=== PATIENT | female | born 1970 | race Caucasian/White ===

== ENCOUNTER → 2016-11-16 | Outpatient (CLI) | payer OTHER ==
--- NOTE | 2016-11-16 10:35 | REP ---
Clinical: Contusion. Technique: AP and lateral views of the left forearm. Findings: Fracture involving the distal radial metaphysis extending to the articular surface is suspected and requires correlation. Impression: Suspected nondisplaced fracture involving the distal radius. Signed by Rock Bean MD 11/16/2016 10:26 A
== END ==
LOC: M ADAMS 10:03
PROVIDERS: ATTEND Physician Assistant Medical
DX: S50.12XA Contusion of left forearm, initial encounter (principal); X58.XXXA Exposure to other specified factors, initial encounter; Y92.89 Other specified places as the place of occurrence of the external cause

== ENCOUNTER → 2016-11-16 | Outpatient (CLI) | payer OTHER | LOC: M ADAMS 10:35 | PROVIDERS: ATTEND Physician Assistant Medical | DX: S60.212A Contusion of left wrist, initial encounter (principal); X58.XXXA Exposure to other specified factors, initial encounter; Y92.89 Other specified places as the place of occurrence of the external cause ==

== ENCOUNTER → 2016-11-16 | Outpatient (CLI) | payer OTHER ==
--- NOTE | 2016-11-16 11:26 | REP ---
Clinical: Contusion. Trauma. Technique: AP, lateral, bilateral oblique views of the left wrist. Findings: A subtle nondisplaced fracture involving the distal radial metaphysis cannot be excluded. Remainder examination appears normal. Impression: Cannot exclude subtle nondisplaced fracture of the distal radius. Signed by Rock Bean MD 11/16/2016 11:17 A
== END ==
LOC: M ADAMS 08:00
PROVIDERS: ATTEND Physician Assistant Medical
DX: S60.212A Contusion of left wrist, initial encounter (principal)

== ENCOUNTER → 2017-03-15 | Outpatient (REF) | payer OTHER | LOC: M SFHCWAGY 12:17 | PROVIDERS: ATTEND Nurse Practitioner Family | DX: Z12.4 Encounter for screening for malignant neoplasm of cervix (principal) ==

== ENCOUNTER → 2017-10-17 | Outpatient (REF) | payer OTHER | LOC: M LAB REF 18:48 | DX: J02.9 Acute pharyngitis, unspecified (principal) ==

== ENCOUNTER → 2018-02-04 | Outpatient (CLI) | payer OTHER | LOC: M WHC 13:50 | DX: Z12.31 Encounter for screening mammogram for malignant neoplasm of breast (principal) | CPT/HCPCS: 77067 ==

== ENCOUNTER → 2018-08-26 | Outpatient (REF) | payer OTHER | LOC: M LAB REF 19:51 | DX: N39.0 Urinary tract infection, site not specified (principal) ==

== ENCOUNTER → 2019-06-03 | Outpatient (REF) | payer OTHER | LOC: M SFHCWAGY 12:04 | PROVIDERS: ATTEND Nurse Practitioner Family | DX: Z12.4 Encounter for screening for malignant neoplasm of cervix (principal) ==

== ENCOUNTER → 2019-06-03 | Outpatient (CLI) | payer OTHER ==
--- NOTE | 2019-06-03 13:22 | REPMRS ---
Patient History The patient states she had a clinical breast exam in 05/2019. No known family history of cancer. No Hormone Replacement Therapy 3D TOMOSYNTHESIS WAS PERFORMED. [facility] for breast cancer [facility] 11.[facility]%. Digital Woman Screen Mammo: June 03, 2019 - Exam #: [id number] Bilateral CC and MLO view(s) were taken. Technologist: Jada Rodriguez, Technologist Prior study comparison: February 04, 2018, digital woman screen mammo performed at [facility]. December 13, 2015, digital woman screen mammo performed at [facility]. FINDINGS: The breast tissue is heterogeneously dense. This may lower the sensitivity of mammography. There has been no change in the appearance of the mammogram from the prior studies. There is a moderate amount of residual fibroglandular tissue which is fairly symmetric. There is no interval development of dominant mass, areas of architectural distortion, or clustered microcalcification typical of malignancy. Assessment: BI-RADS/ACR category 1 mammogram. Negative Mammogram. Recommendation Routine screening mammogram in 1 year (for women over age 40). This mammogram was interpreted with the aid of an FDA-approved computer-aided dectection system. Electronically Signed By: Olman Chavez MD 06/03/19 [id number]
== END ==
LOC: M WHC 11:32
PROVIDERS: ATTEND Nurse Practitioner Family
DX: Z12.31 Encounter for screening mammogram for malignant neoplasm of breast (principal)

== ENCOUNTER → 2019-06-03 | Outpatient (REF) | payer OTHER ==
[~2019-06-03] MED LIST: PERCOCET PO
== END ==
LOC: M SFHCWAGY 14:09
PROVIDERS: ATTEND Nurse Practitioner Family
DX: Z12.4 Encounter for screening for malignant neoplasm of cervix (principal)

== ENCOUNTER → 2019-08-21 | Outpatient (CLI) | payer OTHER ==
[2019-08-21 11:32] LABS: HEMATOCRIT 40.5 % (36.0-47.0); MEAN CORPUSCULAR HEMOGLOBIN 30.9 pg (27.0-33.0); MEAN CORPUSCULAR HGB CONC 32.1 g/dl (32.0-36.5); MEAN CORPUSCULAR VOLUME 96.2 fl (80.0-96.0); PLATELET COUNT, AUTOMATED 232 10^3/uL (150-450); RED BLOOD COUNT 4.21 10^6/uL (4.00-5.40); WHITE BLOOD COUNT 6.6 10^3/uL (4.0-10.0)
[2019-08-21 11:59] LABS: BLOOD UREA NITROGEN 12 MG/DL (7-18); CALCIUM LEVEL 8.6 MG/DL (8.5-10.1); CARBON DIOXIDE LEVEL 29 MEQ/L (21-32); CHLORIDE LEVEL 105 MEQ/L (98-107); CREATININE FOR GFR 0.86 MG/DL (0.55-1.30); GLOMERULAR FILTRATION RATE > 60.0 (>58); GLUCOSE, FASTING 93 MG/DL (70-100); POTASSIUM SERUM 4.6 MEQ/L (3.5-5.1); SODIUM LEVEL 137 MEQ/L (136-145)
== END ==
LOC: M LAB 10:56
PROVIDERS: ATTEND Plastic Surgery Surgery of the Hand
DX: N62 Hypertrophy of breast (principal)

== ENCOUNTER 2019-09-01 06:10 | Day surgery (SDC) | payer OTHER ==
[2019-09-01] VITALS (7 sets, daily range): BP systolic 103–116; BP diastolic 55–69
[~2019-09-01] VITALS: Ht 160 cm; Wt 59.9 kg
[~2019-09-01 06:10] MED LIST changes: +LR 1,000 ML IV ONE; -PERCOCET PO; +ceFAZolin SOD 1 GM in D5W MINI-BAG PLUS 50 ML IV ONE
[2019-09-01] MEDS ORDERED: BACITRACIN PWD 50,000 UNITS VIAL As Ordered ONE (06:42)
[2019-09-01] MEDS ORDERED: BUPIVACAINE LIPOSOME/PF 1.3% 20ML VIAL (13.3MG/ML)(EXPAREL)(C9290 PER1MG) As Ordered ONE (06:42)
[2019-09-01] MEDS ORDERED: LIDOCAINE 1% MDV 20ML VIAL As Ordered ONE (06:43)
[2019-09-01] MEDS ORDERED: EPINEPHrine INJ 1 MG/ML 1ML AMP As Ordered ONE (06:43)
[2019-09-01] MEDS ORDERED: SCOPOLAMINE 1MG TRANSDERMAL PATCH As Ordered ONE (07:36)
[2019-09-01] MEDS ORDERED: SCOPOLAMINE 1MG TRANSDERMAL PATCH TOP ONE (07:45)
[2019-09-01] MEDS ORDERED: dexameTHASONE 4 MG/ML 1ML VIAL (J1100) As Ordered ONE (08:06)
[2019-09-01] MEDS ORDERED: LIDOCAINE 2% INJ 100 MG/5 ML SDV (FOR ANES.) As Ordered ONE (08:06)
[2019-09-01] MEDS ORDERED: ePHEDrine SULFATE 25 MG/5 ML(5MG/ML) SYRINGE As Ordered ONE (08:06)
[2019-09-01] MEDS ORDERED: MIDAZOLAM INJ 2 MG/2 ML VIAL (J2250) As Ordered ONE (08:06)
[2019-09-01] MEDS ORDERED: ONDANSETRON 4MG/2ML VIAL (J2405) As Ordered ONE (08:06)
[2019-09-01] MEDS ORDERED: SUGAMMADEX SODIUM 500 MG/5 ML VIAL (BRIDION) As Ordered ONE (08:06)
[2019-09-01] MEDS ORDERED: METOCLOPRAMIDE INJ 10MG/2ML VIAL (J2765) As Ordered ONE (08:06)
[2019-09-01] MEDS ORDERED: PHENYLephrine HCL 500 MCG/5 ML (100MCG/ML) SYRINGE (J2370) As Ordered ONE (08:06)
[2019-09-01] MEDS ORDERED: PROPOFOL 200 MG/20 ML VIAL As Ordered ONE ×2 (08:06→10:50)
[2019-09-01] MEDS ORDERED: fentaNYL 250 MCG/5 ML INJECTION (J3010) As Ordered ONE (08:06)
[2019-09-01] MEDS ORDERED: ROCURONIUM BROMIDE 50 MG/5 ML VIAL As Ordered ONE ×2 (08:06→08:32)
[2019-09-01] MEDS ORDERED: ACETAMINOPHEN 1000MG 100ML IV BTL (OFIRMEV) (J0131 PER 10MG) As Ordered ONE (08:11)
[2019-09-01] MEDS ORDERED: KETOROLAC 60 MG/2 ML VIAL (J1885) As Ordered ONE (08:59)
[2019-09-01] MEDS ORDERED: HYDROmorphone HCL 2 MG/ML 1ML VIAL (J1170) As Ordered ONE (09:16)
--- NOTE | 2019-09-01 11:02 | POST-OPPD ---
Postoperative Procedure Note Date Of Procedure: Sep 01, 2019 PREOPERATIVE DIAGNOSIS: Symptomatic macromastia POSTOPERATIVE DIAGNOSIS: same FINDINGS: Large pendulous breasts PROCEDURE: Bilateral breast reduction SURGEON: Dr Magallanes BOAT DETAILER: Dr Gann ANESTHESIA: General SPECIMENS: Right breast 292 g, Left Breast 241g ESTIMATED BLOOD LOSS: 50cc REPLACED: none DRAINS: 10 mm JANES drains x 2 COMPLICATIONS: none POSTOPERATIVE CONDITION: stable JEFRY MAGALLANES DO Sep 01, 2019 11:02
[2019-09-01] MEDS ORDERED: fentaNYL 100 MCG/2 ML INJECTION (J3010) As Ordered ONE (11:15)
[2019-09-01] MEDS ORDERED: fentaNYL 100 MCG/2 ML INJECTION (J3010) IV PRN (11:30)
[2019-09-01] MEDS ORDERED: LR 1,000 ML IV SCH (11:30)
[2019-09-01] MEDS ORDERED: ONDANSETRON 4MG/2ML VIAL (J2405) IV PRN ×2 (11:30→13:00)
[2019-09-01] MEDS ORDERED: oxyCODONE 5MG TAB PO PRN (11:30)
[2019-09-01] MEDS ORDERED: PERCOCET 5MG/325MG TAB PO PRN (12:45)
[2019-09-01] MEDS: LR 1,000 ML IV SCH ×2 (12:45→23:07)
[2019-09-01] MEDS ORDERED: KETOROLAC 30 MG/ML VIAL (J1885) IV PRN (12:45)
[2019-09-01] MEDS: ceFAZolin SOD 1 GM in D5W MINI-BAG PLUS 50 ML IV SCH ×2 (16:35→23:36)
--- NOTE | 2019-09-01 16:42 | RO ---
DATE OF PROCEDURE: 09/01/2019 PREPROCEDURE DIAGNOSIS: Symptomatic macromastia. POSTPROCEDURE DIAGNOSIS: Symptomatic macromastia. PROCEDURE: Bilateral breast reduction. SURGEON: Gabi Kilpatrick DO [employer]IONAL SALES LEADER: Dr. Gann ANESTHESIA: General. SPECIMENS SENT: Right breast 292 grams and left breast is 241 grams. BLOOD LOSS: 50 mL. No replacements needed. DRAINS: 10 mm [place] drains times two. No complications. DESCRIPTION OF PROCEDURE: This is a 49-year-old female who has large breasts, which cause significant upper back pain and discomfort. The patient has failed medical treatment for the upper back pain and with support bras and upper back exercises and [id number] pain medicine, and she wishes to have her breasts surgically reduced. All the risks and benefits and alternatives discussed with the patient in detail, and she is ready to proceed. The day of surgery, she was marked in the upright position. Her nipple areolar complex from the sternal notch on the left is 27-1/2 cm and on the right is 28-1/2 cm. She has wide-based breasts. Her IMF is at 21 cm from the sternal notch, so she was marked according to superior medial pedicle. Then, she was brought into the operating room, placed in supine position. Preoperative antibiotics were given, sequential stockings were placed on the lower calves, general anesthesia was induced. She was prepped and draped in the usual sterile fashion. We started our procedure on the right side, which is slightly culp, outlined the nipple areolar complex at 45 mm in diameter and an incision was carried out using 10 blade. The breast tissue was resected and removed, inferolateral portion of it. Hemostasis was obtained using electrocautery. We used PEAK cautery and regular cautery for the resection and coagulation. The pedicle was then de-epithelialized using Koenig scissors and then Exparel was infiltrated throughout the breast tissue 7 mL. Then, the pedicle was turned superiorly to its new location at 21 cm from sternal notch and the new breast mound was recreated. The pillars were closed with interrupted #3-0 Monocryl sutures, the vertical pillar was 5 cm and excess tissue was measured and resected creating the horizontal scar, which was closed in layers with interrupted #3-0 Monocryl sutures. 10 mm [place] drain was placed through the lateral portion of the horizontal incision. Nipple areolar complex was brought into view and sutured in layers with interrupted #3-0 and #4-0 Monocryl sutures and #5-0 plain. Then, we turned our attention to the left side, and the nipple areolar complex was measured out at 45 mm in diameter. Then, resection was started using electrocautery and PEAK cautery. Inferolateral portion of the breast was removed, hemostasis was obtained, and the wound was irrigated with bacitracin irrigation solution. The pedicle was de-epithelialized using Koenig scissors and then the Exparel was infiltrated throughout the breast tissue and the pectoralis muscle, total of 7 mL. Then, the pedicle was turned superiorly and a breast mound was recreated, #0 Vicryl sutures were used to conform the mound. The pedicles were then closed with interrupted #3-0 Monocryl sutures. The vertical limb was 5 cm, excess tissue was measured and resected creating the horizontal scar. Nipple areolar complex was sutured then with interrupted #3-0 and #4-0 Monocryl sutures and a #5-0 plain. The horizontal scar was closed with interrupted #3-0 Monocryl sutures and a 10 mm [place] drain was placed through the lateral portion of the incision. Additional 3 mL of Exparel was infiltrated along the horizontal scar bilaterally, totaling 20 mL of Exparel for the procedure. The Prineo dressing was placed on all the incisions and for the nipple areolar complex we used a Xeroform dressing with a bulky dressing and then a surgical bar was applied. Total resection: Right side 292 grams, left side 241 grams. The patient was extubated in the operating room without any difficulties, transferred to the recovery room in stable condition.
[2019-09-02 04:15] VITALS: BP 102/61
[2019-09-02 08:00] VITALS: BP 114/62
--- NOTE | 2019-09-02 08:54 | IPNPDOC ---
Subjective General Date/Time Seen The patient was seen on 09/02/19 at 07:51. Subject Chief Complaint/History The patient is a 49-year-old female admitted with a reason for visit of Breast Hypertrophy. Patient s/p BBR POD 1. Doing well. Pain controlled. Tolerating diet, ambulating. Current Medications Current Medications Current Medications Medications (Trade) Dose Ordered Sig/Cy Route PRN Reason Start Time Stop Time Status Last Admin Dose Admin Cefazolin Sodium 1 gm/Dextrose 50 ml @ 100 mls/hr Q8H IV 09/01/19 16:00 09/02/19 00:29 DC 09/01/19 23:36 Fentanyl Citrate (Sublimaze) 25 mcg Q5MP PRN IV PAIN LEVEL 5-10 09/01/19 11:30 09/01/19 12:30 DC Ketorolac Tromethamine (ToRADol) 15 mg Q6H PRN IV MODERATE PAIN (PS 5-7) 09/01/19 12:45 09/06/19 12:44 Lactated Ringer's 1,000 ml @ 75 mls/hr [id number] IV 09/01/19 12:45 09/01/19 23:07 Lactated Ringer's 1,000 ml @ 100 mls/hr Q10H IV 09/01/19 11:30 09/01/19 12:30 DC Ondansetron HCl (ZOFRAN INJection) 4 mg Q4HP PRN IV NAUSEA OR VOMITING 09/01/19 11:30 09/01/19 12:30 DC Ondansetron HCl (ZOFRAN INJection) 4 mg Q6HP PRN IV NAUSEA OR VOMITING 09/01/19 13:00 Oxycodone HCl (Roxicodone, Oxyir) 5 mg ASDIRECTED PRN PO PAIN LEVEL 1-4 09/01/19 11:30 09/01/19 12:30 DC Oxycodone/ Acetaminophen (Percocet 5mg/ 325mg Tablet) 1 tab Q4HP PRN PO SEVERE PAIN 09/01/19 12:45 Allergies Coded Allergies: No Known Allergies (Unverified , 09/01/19) Objective Physical Examination Examination GENERAL APPEARANCE:Patient seen, laying in bed, awake, alert, and oriented. Comfortable, in no acute distress. SKIN: Warm and moist. BREAST: Soft, symmetrical. Flaps viable, NAC viable. Minimal pain. Minimal post op ecchymosis. LUNGS: Clear to auscultation bilaterally. No wheezing appreciated. HEART: No chest wall abnormalities. Regular rate and rhythm with no murmurs appreciated. Vital Signs Vital Signs Date Time Temp Pulse Resp B/P (MAP) Pulse Ox O2 Delivery O2 Flow Rate FiO2 09/02/19 08:00 99.4 61 18 114/62 (79) 98 Room Air 09/01/19 11:10 2 I&Os I&O- Last 24 Hours up to 6 AM 09/02/19 06:00 Intake Total 2950 ml Output Total 2344 ml Balance 606 ml Impression S/p BBR Doing well. Pain controlled Stable for discharge Instructions given Monitor JANES drains at home Pain meds F/up plastic surgery office Plan / VTE VTE Prophylaxis Ordered?: Yes JEFRY MAGALLANES DO Sep 02, 2019 08:54
[2019-09-02] MEDS ORDERED: PERCOCET PO (08:57)
== END 2019-09-02 10:00 | disposition home or self-care (01) ==
LOC: M SDC 06:10 → M PED 12:35 → M SDC 09-02 10:00
PROVIDERS: ATTEND Plastic Surgery Surgery of the Hand
DX: N62 Hypertrophy of breast (principal); J45.909 Unspecified asthma, uncomplicated
CPT/HCPCS: 19318; 81025; 88305; 96361; 96365; 96366; C9290; J0131; J0690; J1100; J1170; J1885; J2250; J2370; J2405; J2765; J3010

== ENCOUNTER → 2019-12-02 | Outpatient (CLI) | payer OTHER ==
[~2019-12-02] MED LIST changes: -LR 1,000 ML IV ONE; +PERCOCET PO; -ceFAZolin SOD 1 GM in D5W MINI-BAG PLUS 50 ML IV ONE
[2019-12-02 07:57] LABS: HEMATOCRIT 38.9 % (36.0-47.0); HEMOGLOBIN 12.7 g/dl (12.0-15.5); MEAN CORPUSCULAR HEMOGLOBIN 30.8 pg (27.0-33.0); MEAN CORPUSCULAR HGB CONC 32.6 g/dl (32.0-36.5); MEAN CORPUSCULAR VOLUME 94.2 fl (80.0-96.0); PLATELET COUNT, AUTOMATED 230 10^3/uL (150-450); RED BLOOD COUNT 4.13 10^6/uL (4.00-5.40)
[2019-12-02 08:17] LABS: ALBUMIN 3.5 GM/DL (3.2-5.2); ALT/SGPT 21 U/L (12-78); BILIRUBIN,TOTAL 0.3 MG/DL (0.2-1.0); BLOOD UREA NITROGEN 15 MG/DL (7-18); CALCIUM LEVEL 8.2 MG/DL (8.5-10.1); CARBON DIOXIDE LEVEL 27 MEQ/L (21-32); CHLORIDE LEVEL 106 MEQ/L (98-107); CHOLESTEROL LEVEL 198 MG/DL (<200); CHOLESTEROL RISK RATIO 2.675 (<5); CREATININE FOR GFR 0.87 MG/DL (0.55-1.30); GLOMERULAR FILTRATION RATE > 60.0 (>51); GLUCOSE, FASTING 82 MG/DL (70-100); HDL CHOLESTEROL 74 MG/DL (>40); LDL CHOLESTEROL 112 MG/DL (<100); NON-HDL-C 124 MG/DL; POTASSIUM SERUM 4.2 MEQ/L (3.5-5.1); SODIUM LEVEL 140 MEQ/L (136-145); TOTAL PROTEIN 6.9 GM/DL (6.4-8.2); TRIGLYCERIDES LEVEL 62 MG/DL (<150)
== END ==
LOC: M LAB 07:13
PROVIDERS: ATTEND Family Medicine
DX: Z00.00 Encounter for general adult medical examination without abnormal findings (principal)

== ENCOUNTER → 2019-12-16 | Outpatient (CLI) | payer OTHER | LOC: M WHC 09:31 | PROVIDERS: ATTEND Family Medicine | DX: Z13.820 Encounter for screening for osteoporosis (principal) ==

== ENCOUNTER → 2020-06-28 | Outpatient (CLI) | payer OTHER ==
--- NOTE | 2020-06-28 12:44 | REPMRS ---
Patient History The patient states she had a clinical breast exam in June 2019. No known family history of cancer. No Hormone Replacement Therapy 3D TOMOSYNTHESIS WAS PERFORMED. The Lico Benites lifetime risk for breast cancer is 11.0%. MEENA Mota. Digital Woman Screen Mammo: June 28, 2020 - Exam #: [id number] Bilateral CC and MLO view(s) were taken. Technologist: Maria Isabel Everett, Technologist Prior study comparison: June 03, 2019, bilateral digital woman screen mammo performed at [facility] February 04, 2018, digital woman screen mammo performed at [facility]. FINDINGS: There are scattered fibroglandular densities. There has been no change in the appearance of the mammogram from the prior studies. There is a mild amount of residual fibroglandular tissue which is fairly symmetric. There is no interval development of dominant mass, architectural distortion, or clustered microcalcification suggestive of malignancy. Assessment: BI-RADS/ACR category 1 mammogram. Negative Mammogram. Recommendation Routine screening mammogram in 1 year (for women over age 40). This mammogram was interpreted with the aid of an FDA-approved computer-aided dectection system. Electronically Signed By: Olman Chavez MD 06/28/20 [id number]
== END ==
LOC: M WHC 11:00
PROVIDERS: ATTEND Nurse Practitioner Family
DX: Z12.31 Encounter for screening mammogram for malignant neoplasm of breast (principal)

== ENCOUNTER → 2021-08-28 | Outpatient (CLI) | payer OTHER | LOC: M WHC 14:34 | PROVIDERS: ATTEND Nurse Practitioner Women's Health | DX: Z12.31 Encounter for screening mammogram for malignant neoplasm of breast (principal) ==

== ENCOUNTER → 2021-08-28 | Outpatient (REF) | payer OTHER | LOC: M SFHCWAGY 10:23 | PROVIDERS: ATTEND Nurse Practitioner Women's Health | DX: Z12.4 Encounter for screening for malignant neoplasm of cervix (principal) ==

== ENCOUNTER → 2022-05-28 | Outpatient (CLI) | payer OTHER ==
[2022-05-28 10:17] LABS: HEMOGLOBIN 13.6 g/dl (12.0-15.5); MEAN CORPUSCULAR HEMOGLOBIN 31.6 pg (27.0-33.0); MEAN CORPUSCULAR HGB CONC 32.4 g/dl (32.0-36.5); MEAN CORPUSCULAR VOLUME 97.4 fl (80.0-96.0); PLATELET COUNT, AUTOMATED 238 10^3/uL (150-450); RED BLOOD COUNT 4.31 10^6/uL (4.00-5.40); WHITE BLOOD COUNT 4.1 10^3/uL (4.0-10.0)
[2022-05-28 12:08] LABS: ALBUMIN 3.6 GM/DL (3.2-5.2); ALT/SGPT 17 U/L (12-78); BILIRUBIN,TOTAL 0.3 MG/DL (0.2-1.0); BLOOD UREA NITROGEN 10 MG/DL (7-18); CALCIUM LEVEL 8.9 MG/DL (8.5-10.1); CARBON DIOXIDE LEVEL 30 MEQ/L (21-32); CHLORIDE LEVEL 107 MEQ/L (98-107); CHOLESTEROL LEVEL 201 MG/DL (<200); CHOLESTEROL RISK RATIO 2.451 (<5); CREATININE FOR GFR 0.86 MG/DL (0.55-1.30); GLOMERULAR FILTRATION RATE > 60.0 (>51); GLUCOSE, FASTING 89 MG/DL (70-100); HDL CHOLESTEROL 82 MG/DL (>40); LDL CHOLESTEROL 109 MG/DL (<100); NON-HDL-C 119 MG/DL; POTASSIUM SERUM 5.1 MEQ/L (3.5-5.1); SODIUM LEVEL 139 MEQ/L (136-145); TOTAL 25(OH) VITAMIN D 33.5 NG/ML (30.0-100.0); TOTAL PROTEIN 7.1 GM/DL (6.4-8.2); TRIGLYCERIDES LEVEL 50 MG/DL (<150)
== END ==
LOC: M LAB 08:48
PROVIDERS: ATTEND Family Medicine
DX: Z79.899 Other long term (current) drug therapy (principal)

== ENCOUNTER → 2022-12-26 | Outpatient (CLI) | payer OTHER | LOC: M WHC 12:49 | PROVIDERS: ATTEND Family Medicine | DX: M85.9 Disorder of bone density and structure, unspecified (principal) ==

== ENCOUNTER → 2024-11-05 | Outpatient (REF) | payer OTHER ==
[2024-11-05 14:49] LABS: BASO % 0.9 % (0.0-1.0); EOS # 0.5 10^3/uL (0.0-0.5); EOS % 10.8 % (0.0-3.0); HEMATOCRIT 42.8 % (36.0-47.0); LYMPH # 0.9 10^3/uL (1.5-5.0); LYMPH % 20.3 % (24.0-44.0); MEAN CORPUSCULAR HEMOGLOBIN 31.3 pg (27.0-33.0); MEAN CORPUSCULAR HGB CONC 32.7 g/dl (32.0-36.5); MEAN CORPUSCULAR VOLUME 95.5 fl (80.0-96.0); MONO # 0.4 10^3/uL (0.0-0.8); MONO % 9.4 % (2.0-8.0); NEUTROPHILS # 2.5 10^3/uL (1.5-8.5); NEUTROPHILS % 58.4 % (36.0-66.0); PLATELET COUNT, AUTOMATED 258 10^3/uL (150-450); RED BLOOD COUNT 4.48 10^6/uL (4.00-5.40); WHITE BLOOD COUNT 4.2 10^3/uL (4.0-10.0)
[2024-11-05 14:58] LABS: C REACTIVE PROTEIN QUANTITATIV < 0.50 MG/DL (<1.0)
[2024-11-05 14:59] LABS: FOLLICLE STIMULATING HORMONE 65.3 mIU/ML; THYROID STIMULATING HORMONE 2.098 uIU/ML (0.55-4.78)
[2024-11-05 15:00] LABS: ALBUMIN 3.7 G/DL (3.2-5.2); ALKALINE PHOSPHATASE 69 U/L (35-104); ALT/SGPT 14 U/L (7.0-40); AST/SGOT 19 U/L (<34); BILIRUBIN,TOTAL 0.4 MG/DL (0.3-1.2); BLOOD UREA NITROGEN 11 MG/DL (9-23); CALCIUM LEVEL 9.3 MG/DL (8.5-10.1); CARBON DIOXIDE LEVEL 28 MMOL/L (20-31); CHLORIDE LEVEL 107 MMOL/L (98-107); CREATININE FOR GFR 0.82 MG/DL (0.55-1.30); GLOMERULAR FILTRATION RATE > 60.0 (>51); GLUCOSE, FASTING 90 MG/DL (60-100); POTASSIUM SERUM 4.3 MMOL/L (3.5-5.1); SODIUM LEVEL 143 MMOL/L (136-145); TOTAL PROTEIN 7.1 G/DL (5.7-8.2)
[2024-11-05 15:03] LABS: ERYTHROCYTE SEDIMENTATION RATE 13 mm/hr (0-30)
[2024-11-05 17:38] LABS: RHEUMATOID FACTOR QUANT 18.9 IU/ML (<14)
[2024-11-05 17:40] LABS: URIC ACID 4.5 MG/DL (3.1-7.8)
[2024-11-06 14:22] LABS: ANA SCREEN, IFA NEGATIVE (NEGATIVE)
[2024-11-06 22:47] LABS: CYCLIC CITRULLINATED PEPTIDE < 16 UNITS (<20)
[2024-11-07 02:22] LABS: IgG P18 AB NON-REACTIVE; IgG P23 AB NON-REACTIVE; IgG P28 AB NON-REACTIVE; IgG P30 AB NON-REACTIVE; IgG P39 AB NON-REACTIVE; IgG P41 AB NON-REACTIVE; IgG P45 AB NON-REACTIVE; IgG P58 AB NON-REACTIVE; IgG P66 AB NON-REACTIVE; IgG P93 AB NON-REACTIVE; IgM P23 AB NON-REACTIVE; IgM P39 AB NON-REACTIVE; IgM P41 AB NON-REACTIVE; LYME IgG WB INTERPRETATION NEGATIVE (NEGATIVE); LYME IgM WB INTERPRETATION NEGATIVE (NEGATIVE)
== END ==
LOC: M LABDRWAD 12:48
PROVIDERS: ATTEND Family Medicine
DX: M25.50 Pain in unspecified joint (principal); R23.2 Flushing